=== PATIENT | female | born 1980 | race Two or more races ===

== ENCOUNTER 2017-03-01 16:05 | Emergency (ER) | payer MEDICAID ==
[~2017-03-01] VITALS: Ht 157.5 cm; Wt 59.9 kg
--- NOTE | 2017-03-01 16:28 | NUR ---
Patient discharged to home in stable conditon. Written and verbal after care instructions given. Patient verbalizes understanding of instructions.
== END 2017-03-01 16:29 | disposition home or self-care (01) ==
LOC: ER 16:12
DX: J02.9 Acute pharyngitis, unspecified (principal)
CPT/HCPCS: A4663

== ENCOUNTER 2018-02-16 21:43 | Emergency (ER) | payer SELFPAY ==
[~2018-02-16] VITALS: Ht 157.5 cm; Wt 59.9 kg
--- NOTE | 2018-02-16 22:27 | NUR ---
DR CELY CARVER MD AT BEDSIDE FOR MSE.
[2018-02-16] MEDS: IV NORMAL SALINE 1000 ML BAG IV ONE (22:41)
--- NOTE | 2018-02-16 22:45 | NUR ---
LAB AT BEDSIDE FOR BLOOD DRAW.
[2018-02-16 23:10] LABS: BASOPHILS % (AUTO) 0.4 % (0.0-2.0); EOSINOPHILS # (AUTO) 0.2 K/uL (0.0-0.7); EOSINOPHILS % (AUTO) 1.4 % (0.0-7.0); HEMATOCRIT 36.9 % (31.2-41.9); HEMOGLOBIN 12.2 g/dL (10.9-14.3); LYMPHOCYTES # (AUTO) 0.9 K/uL (20.0-40.0); LYMPHOCYTES % (AUTO) 7.3 % (20.5-51.5); MEAN CORPUSCULAR HEMOGLOBIN 27.8 uug (24.7-32.8); MEAN CORPUSCULAR HGB CONC 33 g/dL (32.3-35.6); MONOCYTES # (AUTO) 0.5 K/uL (2.0-10.0); MONOCYTES % (AUTO) 4.1 % (0.0-11.0); NEUTROPHILS % (AUTO) 86.8 % (38.5-71.5); PLATELET COUNT (AUTO) 390 K/uL (179-408); RED BLOOD CELL COUNT(AUTO) 4.39 MIL/uL (3.63-4.92); WHITE BLOOD COUNT (AUTO) 12.7 K/uL (3.8-11.8)
--- NOTE | 2018-02-16 23:10 | NUR ---
PT AMBULATED TO BATHROOM W/ STEADY GAIT.
--- NOTE | 2018-02-16 23:19 | NUR ---
PT TAKEN TO RADIOLOGY FOR CT VIA WHEELCHAIR. NO ACUTE DISTRESS NOTED.
[2018-02-16 23:24] LABS: *BILIRUBIN,URIN NEGATIVE (NEGATIVE); *BLOOD, URINE NEGATIVE (NEGATIVE); *CLARITY,URINE CLEAR (CLEAR); *COLOR,URINE YELLOW (YELLOW); *KETONES,URINE NEGATIVE (NEGATIVE); *PROTEIN,URINE NEGATIVE (NEGATIVE); *UROBILINOGEN,URINE 0.2 E.U./dl (NORMAL); LEUKOCYTE ESTERASE ,URINE NEGATIVE (NEGATIVE); NITRITE, URINE NEGATIVE (NEGATIVE); PH,URINE 7.5 (5.0-8.0); UGLUCOSE NEGATIVE (NEGATIVE)
[2018-02-16 23:28] LABS: BACTERIA,URINE NONE SEEN /HPF (NONE SEEN); RBC,URINE NONE SEEN /HPF (0-3); SQUAMOUS EPITHELIAL CELL,UR MODERATE /HPF (NONE SEEN); WBC,URINE 0-3 /HPF (0-3)
[2018-02-16 23:29] LABS: BILIRUBIN,DIRECT 0.1 mg/dL (0.0-0.2); BILIRUBIN,TOTAL 0.8 mg/dL (0.2-1.0); CREATININE 0.7 mg/dL (0.6-1.3); POTASSIUM 3.8 mmol/L (3.5-5.1); TOTAL PROTEIN, SERUM 8.5 g/dL (6.4-8.2)
[2018-02-16 23:29] LABS: URINE AMORPHOUS PHOSPHATES FEW /HPF
--- NOTE | 2018-02-16 23:32 | NUR ---
PT BACK IN ROOM FROM CT. NO ACUTE EVENTS.
[2018-02-17] MEDS ORDERED: TRAMADOL HCL 50 MG TABLET ONE (00:35)
[2018-02-17] MEDS: TRAMADOL HCL 50 MG TABLET PO ONE (00:40)
--- NOTE | 2018-02-17 00:43 | NUR ---
Patient discharged to home in stable conditon. Written and verbal after care instructions given. Patient verbalizes understanding of instructions. Pt ambulated from ER w/ steady gait, accompanied by significant other. No distress noted. pt took all personal belongings
[2018-02-17 00:44] VITALS: BP 122/80
== END 2018-02-17 00:45 | disposition home or self-care (01) ==
LOC: ER 21:44
DX: R10.33 Periumbilical pain (principal)
CPT/HCPCS: 36415; 74176; 80048; 80076; 81001; 83690; 84703; 85025; 85610; 99285; A4663; J7030

== ENCOUNTER → 2018-07-13 | Emergency (ER) | payer MEDICAID, OTHER ==
[~2018-07-13] VITALS: Ht 157.5 cm; Wt 62.6 kg
[~2018-07-13] MED LIST: BISACODYL 5 MG TABLET.DR PO ONE; DEXAMETHASONE SOD PHOSPHATE 4 MG INJ IV ONE; DEXAMETHASONE SOD PHOSPHATE 4 MG INJ ONE; KETOROLAC TROMETHAMINE 15 MG INJ IVP ONE; KETOROLAC TROMETHAMINE 15 MG INJ ONE; TYLENOL
--- NOTE | 2018-07-13 12:10 | NUR ---
at bedside to examine patient.
--- NOTE | 2018-07-13 12:26 | NUR ---
Influeza A+B, and strep throat, and urine collected and sent to lab as ordered.
[2018-07-13 12:51] LABS: BASOPHILS % (AUTO) 0.2 % (0.0-2.0); EOSINOPHILS % (AUTO) 0.5 % (0.0-7.0); HEMATOCRIT 35.2 % (31.2-41.9); HEMOGLOBIN 11.7 g/dL (10.9-14.3); LYMPHOCYTES # (AUTO) 0.7 K/uL (20.0-40.0); LYMPHOCYTES % (AUTO) 8.1 % (20.5-51.5); MEAN CORPUSCULAR HEMOGLOBIN 28.7 uug (24.7-32.8); MEAN CORPUSCULAR HGB CONC 33 g/dL (32.3-35.6); MEAN CORPUSCULAR VOLUME 85.9 fL (75.5-95.3); MONOCYTES # (AUTO) 0.7 K/uL (2.0-10.0); NEUTROPHILS # (AUTO) 7.1 K/uL (1.8-8.9); NEUTROPHILS % (AUTO) 83.2 % (38.5-71.5); PLATELET COUNT (AUTO) 311 K/uL (179-408); WHITE BLOOD COUNT (AUTO) 8.5 K/uL (3.8-11.8)
[2018-07-13 12:58] LABS: CREATININE 0.6 mg/dL (0.6-1.3); POTASSIUM 3.7 mmol/L (3.5-5.1)
[2018-07-13 13:04] LABS: BILIRUBIN,DIRECT 0.2 mg/dL (0.0-0.2); TOTAL PROTEIN, SERUM 7.9 g/dL (6.4-8.2)
[2018-07-13 13:16] LABS: *BILIRUBIN,URIN NEGATIVE (NEGATIVE); *BLOOD, URINE NEGATIVE (NEGATIVE); *CLARITY,URINE CLOUDY (CLEAR); *COLOR,URINE YELLOW (YELLOW); *KETONES,URINE NEGATIVE (NEGATIVE); *PROTEIN,URINE NEGATIVE (NEGATIVE); *UROBILINOGEN,URINE 0.2 E.U./dl (NORMAL); LEUKOCYTE ESTERASE ,URINE NEGATIVE (NEGATIVE); NITRITE, URINE NEGATIVE (NEGATIVE); PH,URINE >=9.0 (5.0-8.0); UGLUCOSE NEGATIVE (NEGATIVE)
[2018-07-13 13:23] LABS: BACTERIA,URINE FEW /HPF (NONE SEEN); RBC,URINE 0-3 /HPF (0-3); SQUAMOUS EPITHELIAL CELL,UR FEW /HPF (NONE SEEN); WBC,URINE 0-3 /HPF (0-3)
[2018-07-13 13:24] LABS: URINE AMORPHOUS PHOSPHATES MODERATE /HPF
[2018-07-16 08:07] LABS: *GC NAA Negative (Negative); *TRIC.VAG. NAA Negative (Negative)
== END | disposition home or self-care (01) ==
LOC: ER 11:00
DX: N39.0 Urinary tract infection, site not specified (principal); B96.89 Other specified bacterial agents as the cause of diseases classified elsewhere; B37.3 Candidiasis of vulva and vagina
CPT/HCPCS: 36415; 80048; 80076; 81001; 83605; 84484; 84702; 85025; 86403; 87040 ×2; 87070; 87086; 87400; 87491; 96374; 96375; 99284; J1100; J1885; 70030-TC; 87077; A4663

== ENCOUNTER 2018-10-12 14:55 | Emergency (ER) | payer OTHER ==
[~2018-10-12] VITALS: Ht 160 cm; Wt 62.6 kg
[~2018-10-12 14:55] MED LIST changes: -BISACODYL 5 MG TABLET.DR PO ONE; -DEXAMETHASONE SOD PHOSPHATE 4 MG INJ IV ONE; -DEXAMETHASONE SOD PHOSPHATE 4 MG INJ ONE; -KETOROLAC TROMETHAMINE 15 MG INJ IVP ONE; -KETOROLAC TROMETHAMINE 15 MG INJ ONE
--- NOTE | 2018-10-12 15:10 | NUR ---
PT A/OX4, PRESENTS TO THE ER C/O OF R FLANK PAIN THAT STARTED 4 DAYS AGO. PAIN IS NON-PROVOKED, THROBBING IN QUALITY, DOES NOT RADIATE, 7/10, INTERMITTENT. PT REPORTS NEW ONSET OF PELVIC PAIN THAT STARTED THIS MORNING AND REPORTS BURNING SENSATION WHEN URINATING. PT DENIES C/P, SOB, N/V/D, DIZZINESS, HEADACHE.
[2018-10-12 15:19] LABS: *BILIRUBIN,URIN NEGATIVE (NEGATIVE); *BLOOD, URINE NEGATIVE (NEGATIVE); *CLARITY,URINE CLEAR (CLEAR); *COLOR,URINE YELLOW (YELLOW); *KETONES,URINE NEGATIVE (NEGATIVE); *UROBILINOGEN,URINE 0.2 E.U./dl (NORMAL); LEUKOCYTE ESTERASE ,URINE NEGATIVE (NEGATIVE); NITRITE, URINE NEGATIVE (NEGATIVE); PH,URINE 8.5 (5.0-8.0); UGLUCOSE NEGATIVE (NEGATIVE)
[2018-10-12 15:20] LABS: *URINE HCG, QUAL NEGATIVE (NEGATIVE)
[2018-10-12 15:24] LABS: MUCUS,URINE FEW /LPF (0-FEW); SQUAMOUS EPITHELIAL CELL,UR MODERATE /HPF (NONE SEEN); WBC,URINE 0-3 /HPF (0-3)
--- NOTE | 2018-10-12 15:52 | NUR ---
WEN RAMIREZ AT BEDSIDE FOR PT UPDATE.
--- NOTE | 2018-10-12 16:02 | NUR ---
CALLED RADIOLOGY TO PAGE US TECH.
--- NOTE | 2018-10-12 16:39 | NUR ---
US TECH AT BEDSIDE.
[2018-10-12 17:39] VITALS: BP 133/76
--- NOTE | 2018-10-12 17:39 | NUR ---
Patient discharged to home in stable conditon. Written and verbal after care instructions given. Patient verbalizes understanding of instructions. ALL BELONGINGS W/ PT. PT SELF-AMBULATED W/O DIFFICULTY.
== END 2018-10-12 17:40 | disposition home or self-care (01) ==
LOC: ER 14:57
DX: N83.202 Unspecified ovarian cyst, left side (principal); Z79.899 Other long term (current) drug therapy
CPT/HCPCS: 84703; A4663

== ENCOUNTER 2019-11-11 21:08 | Emergency (ER) | payer OTHER ==
[~2019-11-11] VITALS: Ht 157.5 cm; Wt 59.4 kg
--- NOTE | 2019-11-11 22:15 | NUR ---
Dr. Mohan at bedside for MSE
[2019-11-11] MEDS ORDERED: METOCLOPRAMIDE HCL 10 MG/2 ML VIAL IV ONE (22:30)
[2019-11-11] MEDS ORDERED: diphenhydrAMINE 50 MG/1 ML VIAL IV ONE (22:30)
[2019-11-11] MEDS ORDERED: IV NORMAL SALINE 1000 ML BAG IV ONE (22:30)
[2019-11-11] MEDS ORDERED: diphenhydrAMINE 50 MG/1 ML VIAL ONE (22:31)
[2019-11-11] MEDS ORDERED: METOCLOPRAMIDE HCL 10 MG/2 ML VIAL ONE (22:32)
[2019-11-11 22:35] LABS: BASOPHILS # (AUTO) 0.1 K/uL (0.0-8.0); BASOPHILS % (AUTO) 0.7 % (0.0-2.0); EOSINOPHILS # (AUTO) 0.2 K/uL (0.0-0.7); EOSINOPHILS % (AUTO) 2.3 % (0.0-7.0); HEMOGLOBIN 11.5 g/dL (10.9-14.3); LYMPHOCYTES # (AUTO) 3.1 K/uL (20.0-40.0); LYMPHOCYTES % (AUTO) 41.1 % (20.5-51.5); MEAN CORPUSCULAR HEMOGLOBIN 27.6 uug (24.7-32.8); MEAN CORPUSCULAR HGB CONC 33 g/dL (32.3-35.6); MEAN CORPUSCULAR VOLUME 84.3 fL (75.5-95.3); MONOCYTES # (AUTO) 0.7 K/uL (2.0-10.0); MONOCYTES % (AUTO) 8.9 % (0.0-11.0); NEUTROPHILS # (AUTO) 3.5 K/uL (1.8-8.9); PLATELET COUNT (AUTO) 397 K/uL (179-408); RED BLOOD CELL COUNT(AUTO) 4.16 MIL/uL (3.63-4.92); WHITE BLOOD COUNT (AUTO) 7.5 K/uL (3.8-11.8)
--- NOTE | 2019-11-11 22:45 | NUR ---
Patient taken to CT scan in stable condition
[2019-11-11 22:48] LABS: BILIRUBIN,DIRECT 0.1 mg/dL (0.0-0.2); BILIRUBIN,TOTAL 0.3 mg/dL (0.2-1.0); CREATININE 0.7 mg/dL (0.6-1.3); POTASSIUM 4.6 mmol/L (3.5-5.1); TOTAL PROTEIN, SERUM 7.9 g/dL (6.4-8.2)
--- NOTE | 2019-11-11 23:00 | NUR ---
Patient back from CT scan in stable condition
--- NOTE | 2019-11-12 00:18 | NUR ---
IV removed. Catheter intact and site benign. Pressure and 4x4 gauze applied to site. No bleeding noted.Patient discharged to home in stable conditon. Written and verbal after care instructions given. Patient verbalizes understanding of instructions. Patient ambulating with steady gait
[2019-11-12 00:24] VITALS: BP 121/68
== END 2019-11-12 00:18 | disposition home or self-care (01) ==
LOC: ER 21:10
DX: R51 Headache (principal)
CPT/HCPCS: 36415; 70450; 80048; 80076; 85025; 96374; 96375; 99284; J1200; J2765; A4663; J7030

== ENCOUNTER 2021-05-12 11:17 | Emergency (ER) | payer SELFPAY ==
--- NOTE | 2021-05-12 11:31 | NUR ---
PT'S NAME WAS CALLED IN FOR TRIAGE, BUT NO ANSWER, PT WAS NOT FOUND IN WAITING ROOM AND OUTSIDE.
== END 2021-05-12 12:00 | disposition left against medical advice (07) ==
LOC: ER 11:17
DX: Z53.21 Procedure and treatment not carried out due to patient leaving prior to being seen by health care provider (principal)

== ENCOUNTER 2022-01-25 07:42 | Emergency (ER) | payer OTHER ==
[~2022-01-25] VITALS: Ht 157.5 cm; Wt 64.4 kg
--- NOTE | 2022-01-25 08:00 | NUR ---
Dr Mohan at the bedside for MSE.
[2022-01-25] MEDS ORDERED: PANTOPRAZOLE SODIUM 40 MG VIAL IV ONE (08:15)
[2022-01-25] MEDS ORDERED: LOPERAMIDE HCL 2 MG CAPSULE PO ONE (08:15)
[2022-01-25] MEDS ORDERED: ONDANSETRON 4 MG/2 ML VIAL IV ONE (08:15)
[2022-01-25] MEDS ORDERED: IV NORMAL SALINE 1000 ML BAG IV ONE (08:15)
[2022-01-25] MEDS ORDERED: LOPERAMIDE HCL 2 MG CAPSULE ONE (08:17)
[2022-01-25] MEDS ORDERED: ONDANSETRON 4 MG/2 ML VIAL ONE (08:17)
[2022-01-25] MEDS ORDERED: PANTOPRAZOLE SODIUM 40 MG VIAL ONE (08:17)
[2022-01-25 08:21] LABS: HEMATOCRIT 37.5 % (31.2-41.9); MEAN CORPUSCULAR VOLUME 86.5 fL (75.5-95.3); PLATELET COUNT (AUTO) 327 K/uL (179-408)
--- NOTE | 2022-01-25 08:25 | NUR ---
Pt refused Zofran, stating not nauseous now. Dr Mohan made aware.
[2022-01-25 08:30] LABS: CARBON DIOXIDE 25 mmol/L (21-32); CHLORIDE 102 mmol/L (98-107); CREATININE 0.6 mg/dL (0.6-1.3); GLUCOSE 97 mg/dL (74-106); UREA NITROGEN, BLOOD 8 mg/dL (7-18)
[2022-01-25 08:33] LABS: ALANINE AMINOTRANSFERASE 23 U/L (14-59); ALKALINE PHOSPHATASE 61 U/L (50-136); ASPARTATE AMINOTRANSFERASE 11 U/L (15-37); BILIRUBIN,DIRECT 0.2 mg/dL (0.0-0.2); BILIRUBIN,TOTAL 0.8 mg/dL (0.2-1.0); LIPASE 69 U/L (73-393)
[2022-01-25] MEDS ORDERED: LIDOCAINE VISCUS 2% 15 ML UDC ONE (08:46)
[2022-01-25] MEDS ORDERED: MAG HYDROX/AL HYDROX/SIMETH 30 ML LIQUID UDC ONE (08:46)
[2022-01-25] MEDS ORDERED: LIDOCAINE VISCUS 2% 15 ML UDC MM ONE ×2 (09:00)
[2022-01-25] MEDS ORDERED: MAG HYDROX/AL HYDROX/SIMETH 30 ML LIQUID UDC PO ONE ×2 (09:00)
--- NOTE | 2022-01-25 09:00 | NUR ---
Pt able to tolorate Po fluids, denies nausea.
[2022-01-25] MEDS ORDERED: LOPE2CAP40 PO (09:30)
[2022-01-25] MEDS ORDERED: ONDA8TAB13 PO (09:30)
[2022-01-25] MEDS ORDERED: OMEP40CA21 PO (09:30)
[2022-01-25] MEDS ORDERED: HYDR-4209 PO (09:30)
[2022-01-25] MEDS ORDERED: MAG355OR21 PO (09:30)
--- NOTE | 2022-01-25 09:40 | NUR ---
IV removed. Catheter intact and site benign. Pressure and 4x4 gauze applied to site. No bleeding noted.
[2022-01-25 09:45] VITALS: BP 103/60
--- NOTE | 2022-01-25 09:46 | NUR ---
Patient discharged to home in stable condition. Written and verbal after care instructions given. Patient verbalizes understanding of instructions. Stressed follow up or return to ER for worsening s/s.
== END 2022-01-25 09:46 | disposition home or self-care (01) ==
LOC: ER 07:42
DX: A08.4 Viral intestinal infection, unspecified (principal); Z82.49 Family history of ischemic heart disease and other diseases of the circulatory system; M32.9 Systemic lupus erythematosus, unspecified
CPT/HCPCS: 36415; 80048; 80076; 83690; 84702; 85025; 96361; 96374; 99284; C9113; J7040; A4663; J2405

== ENCOUNTER 2022-06-07 12:21 | Emergency (ER) | payer OTHER ==
[~2022-06-07] VITALS: Ht 157.5 cm; Wt 63.5 kg
[~2022-06-07 12:21] MED LIST changes: +HYDR-4209 PO; +LOPE2CAP40 PO; +MAG355OR21 PO; +OMEP40CA21 PO; +ONDA8TAB13 PO
[2022-06-07] MEDS ORDERED: LIDOCAINE 5% PATCH TD ONE ×2 (12:45→12:59)
[2022-06-07] MEDS ORDERED: ACETAMINOPHEN 325 MG TABLET PO ONE (12:45)
[2022-06-07] MEDS ORDERED: ACETAMINOPHEN 325 MG TABLET ONE (12:59)
--- NOTE | 2022-06-07 13:25 | NUR ---
pt resting comfortably in room, Tylenol 650mg PO given, lidocaine 5% patch applied to left wrist, tolerated.
--- NOTE | 2022-06-07 14:25 | NUR ---
pt reports some pain relief after tylenol and lido patch. Patient discharged to home in stable condition. Written and verbal after care instructions given. Patient verbalizes understanding of instructions. Stressed follow up or return to ER for worsening s/s.
== END 2022-06-07 14:30 | disposition home or self-care (01) ==
LOC: ER 12:21
DX: G56.02 Carpal tunnel syndrome, left upper limb (principal); R07.89 Other chest pain
CPT/HCPCS: 36415; 73110; 84484; 93005; A4663

== ENCOUNTER 2022-08-08 10:28 | Emergency (ER) | payer OTHER ==
[~2022-08-08] VITALS: Ht 160 cm; Wt 63.0 kg
[2022-08-08] MEDS ORDERED: MECLIZINE HCL 25 MG TABLET ONE (11:12)
[2022-08-08] MEDS ORDERED: MECLIZINE HCL 25 MG TABLET PO ONE (11:15)
--- NOTE | 2022-08-08 12:05 | NUR ---
Pt states that dizziness/vertigo is gone, feels much better.
[2022-08-08 12:18] LABS: *URINE HCG, QUAL NEGATIVE (NEGATIVE)
[2022-08-08] MEDS ORDERED: CIPR500T5 PO (12:34)
[2022-08-08] MEDS ORDERED: MECL-159 PO (12:34)
[2022-08-08] MEDS ORDERED: [UNRECOGNIZED DRUG - CODE] PO (12:36)
== END 2022-08-08 12:53 | disposition home or self-care (01) ==
LOC: ER 10:28
DX: J32.9 Chronic sinusitis, unspecified (principal); R42 Dizziness and giddiness; M35.00 Sjogren syndrome, unspecified
CPT/HCPCS: 36415; 71045; 84484; 84703; 93005; A4663; J8597

== ENCOUNTER 2022-12-08 13:42 | Emergency (ER) | payer OTHER ==
[~2022-12-08] VITALS: Ht 157.5 cm; Wt 63.0 kg
[~2022-12-08 13:42] MED LIST changes: +CIPR500T5 PO; +MECL-159 PO; +[UNRECOGNIZED DRUG - CODE] PO
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
--- NOTE | 2022-12-08 14:06 | NUR ---
Pt seen by Safety measures in place. Will continue to monitor.
[2022-12-08] MEDS ORDERED: ACETAMINOPHEN ES 500 MG TABLET PO ONE (14:30)
[2022-12-08] MEDS ORDERED: ACETAMINOPHEN ES 500 MG TABLET ONE (14:32)
--- NOTE | 2022-12-08 14:34 | NUR ---
1) Tylenon 1,000mg administerd. 2) Refused a stronger analgesia because she is driving herself home.
[2022-12-08] MEDS ORDERED: CYCL10TA9 PO (14:38)
[2022-12-08] MEDS ORDERED: NAPR500T6 PO (14:38)
--- NOTE | 2022-12-08 14:46 | NUR ---
1) Discharged home - signed discharge papers and copies provided. 2) Asked MD if she can be seen by a chiropractor - advise if need be - is ok. 3) Patient clinicall stable at the time of discharge. 4) Reassured to be PC if urget to return to ER for further assessment.
[2022-12-08 14:48] VITALS: BP 105/68
== END 2022-12-08 14:49 | disposition home or self-care (01) ==
LOC: ER 13:42
DX: S09.90XA Unspecified injury of head, initial encounter (principal); S16.1XXA Strain of muscle, fascia and tendon at neck level, initial encounter; V49.50XA Passenger injured in collision with unspecified motor vehicles in traffic accident, initial encounter; Y92.410 Unspecified street and highway as the place of occurrence of the external cause; R40.2412 Glasgow coma scale score 13-15, at arrival to emergency department
CPT/HCPCS: 70450; 72125; A4663; A9150

== ENCOUNTER 2023-07-23 13:02 | Emergency (ER) | payer OTHER ==
[~2023-07-23] VITALS: Ht 157.5 cm; Wt 65.3 kg
[~2023-07-23 13:02] MED LIST changes: +CYCL10TA9 PO; +NAPR500T6 PO
[2023-07-23 13:15] VITALS: O2SAT 99
[2023-07-23] MEDS ORDERED: TETRACAINE HCL 0.5% OPHT DROP 2 ML BOTTLE OP ONE (14:30)
[2023-07-23] MEDS ORDERED: FLUORESCEIN SODIUM 1 MG STRIP OP ONE (14:30)
[2023-07-23] MEDS ORDERED: FLUORESCEIN SODIUM 1 MG STRIP ONE (14:31)
[2023-07-23] MEDS ORDERED: TETRACAINE HCL 0.5% OPHT DROP 2 ML BOTTLE ONE (14:31)
[2023-07-23] MEDS ORDERED: CARB10DR OP (14:51)
== END 2023-07-23 15:16 | disposition home or self-care (01) ==
LOC: ER 13:02
DX: H11.31 Conjunctival hemorrhage, right eye (principal); Z79.899 Other long term (current) drug therapy; Z79.2 Long term (current) use of antibiotics
CPT/HCPCS: A4606; A4663